=== PATIENT | female | born 1930 | race Caucasian/White ===

== ENCOUNTER 2019-05-05 12:12 | Inpatient (IN) ==
--- NOTE | 2019-05-05 09:39 | Anesthesia Evaluation PreOp ---
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: Other (anxiety depression) Other Medical History: Renal (bladder cancer), GERD Anesthesia History: No Prior Anesthetic Complications, Past Anesthesia (TURBT, back sx x2) Alcohol Use: none Drug use: none Medications and Allergies ALPRAZolam [Xanax 0.5 MG Tablet] 0.5 mg PO BID 07/07/18 [History] Acetaminophen [Tylenol] 500 mg PO Q6HR PRN 07/07/18 [History] Apixaban [Eliquis] 2.5 mg PO BID 07/07/18 [History] Ascorbic Acid [Vitamin C] 1,000 mg PO DAILY 07/07/18 [History] Aspirin [Lo-Dose Aspirin EC] 81 mg PO DAILY 07/07/18 [History] Atorvastatin [Lipitor] 40 mg PO HS 07/07/18 [History] Benzocaine [Vencedor-15] 1 lozenge PO Q6H PRN 07/07/18 [History] Bisoprolol Fumarate 5 mg PO QAM 07/07/18 [History] Cholecalciferol (Vitamin D3) [Dialyvite Vitamin D] 5,000 unit PO DAILY 07/07/18 [History] Citalopram Hydrobromide [Citalopram HBr] 20 mg PO BID 07/07/18 [History] Clopidogrel Bisulfate [Plavix] 75 mg PO DAILY 07/07/18 [History] Diltiazem HCl [Diltiazem 24Hr Cd] 120 mg PO QAM 07/07/18 [History] Docusate [Colace] 100 mg PO QAM 07/07/18 [History] Fexofenadine HCl [Allergy Relief] 180 mg PO Q48H 07/07/18 [History] Furosemide [Lasix] 40 mg PO QAM 07/07/18 [History] Lactobacillus [Culturelle] 1 each PO DAILY 07/07/18 [History] Losartan Potassium [Cozaar] 50 mg PO DAILY 07/07/18 [History] Meloxicam [Mobic] 7.5 mg PO DAILY 07/07/18 [History] Omeprazole [PriLOSEC] 20 mg PO BIDAC 07/07/18 [History] OxyCODONE ER (12 HR) [OxyCONTIN] 5 mg PO Q12HR 07/07/18 [History] Primidone [Mysoline] 50 mg PO HS 07/07/18 [History] Docusate [Colace] 200 mg PO HS 07/08/18 [History] Potassium Chloride [K-Tab ER] 10 meq PO BID #60 tablet.er 07/12/18 [Rx] Allergy/AdvReac Type Severity Reaction Status Date / Time Diclofenac [From Arthrotec] Allergy Unknown See Verified 07/07/18 19:21 Comments misoprostol [From Arthrotec] Allergy Unknown See Verified 07/07/18 19:21 Comments - Meds/Allergy Pre-op Review Medications Reviewed: Yes Allergies Reviewed: Yes Beta Blockers on Current Med List: Yes If Beta Blockers taken, Date/Time (Last Dose taken): today 0700 Anesthesia Results - Labs Laboratory Tests 04/28/19 04/28/19 14:18 14:18 Hgb 11.8 Hct 37.1 Plt Count 204 Sodium 137 Potassium 5.0 BUN 27 H Creatinine 1.12 - Imaging Additional studies: stress test: ndications: Pre-operative, Coronary Artery Disease, CHF Impression: No ischemia or infarct on perfusion study. Dilated LV, stress LVEF 49%. Pharmacologic stress ECG non-diagnostic for ischemia. History: Hypertension Stress Test Summary: Stress Test Type: Pharmacologic Regadenoson 0.4mg/5ml given IV Baseline Information: Initial Heart Rate: 67 Blood Pressure: 138/60 Stress Information: Stress Time: 4 min 00 sec Test Terminated Due to (primary): Completed Protocol Maximum Blood Pressure: 130/80 Maximum Heart Rate: 87 Percent Maximum Heart Rate Achieved: 66 Double Product: 11,310 METS Reached: 1 Symptoms: Lightheadness Nuclear Summary: SPECT myocardial perfusion imaging using Tc99m Sestamibi given intravenously was performed at rest and following cardiac stress testing. The resting images were obtained following initial dose of 10.3 mCi. Following stress an additional dose of 34.2 mCi was given at peak exercise or 30 seconds post regadenoson infusion. Findings: Stress Note * Resting ECG demonstrated normal sinus rhythm. * No baseline arrhythmias were noted. * Pharmacologic stress ECG is non diagnostic for ischemia due to failure to reach target heartrate. * Occasional PACs noted during stress. * Patient had no chest pain during stress. * Dizziness. Hemodynamic responses * Normal hemodynamic responses to pharmacologic stress. Study Quality * Study quality is average. Gated EF % * Gated EF = 49%. Left Ventricle * The left ventricle is dilated. * LVEDV = 167 mL. Global Hypokinesis in Stress. * Global Hypokinesis in Stress. NORMALS * Normal segmental perfusion in stress. * Normal Segmental Perfusion in rest. * Apical thinning artifact present. TID * No evidence of transient ischemic dilatation. TID ratio * TID ratio = 1.2. IMPRESSION: Detail at the bifurcations and proximal internal/external carotid arteries is limited due to a large amount of calcification and subsequent artifact. However, there is suggested severe narrowing at the origin of the left internal carotid artery. There is also suggested 50-60% short-segment narrowing of the right proximal internal carotid artery. CT angiogram: echo 2018: Impressions: LVEF 40-45%. Mild concentric left ventricular hypertrophy. Mild segmental left ventricular systolic dysfunction. Normal right ventricular structure and function. Mild mitral regurgitation. Pleural effusion noted. Limited study. Valves not completely assessed. 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
--- NOTE | 2019-05-05 12:32 | History & Physical Report ---
Date of Encounter: 05/05/19 Time of Encounter: 12:25 24 Hour HP Update - Instructions Instructions: If the History and Physical is less than 30 days old and was completed prior to A.M. admission and or procedure and has NOT been updated on calendar day of procedure please complete this update prior to performing procedure. - Update Patient reports changes in Medical Condition: No Changes in examination, assessment, or condition: No Changes in Medication: No Preop tests/diagnostics Reviewed: Yes Surgery Remains Indicated: Yes Consent for Planned Operative Procedure(s) Verified: Yes - Pre-Operative Checklist Preoperative Checklist Indicated: Yes Prophylactic Antibiotic Ordered: Yes (Vancomycin due to MRSA risk) Home Medications Include Beta Silvino: No Beta Silvino Taken Today (Day of Surgery): No Beta Silvino Taken Yesterday (Day Prior to Surgery): No Is VTE Prophylaxis Indicated?: Yes
[2019-05-05] MEDS ORDERED: CeFAZolin Syr 2,000MG/20 ML 2,000 MG/20 ML SYRINGE IVPB ONE (12:41)
[2019-05-05] MEDS ORDERED: Albuterol 2.5 MG/3 ML NEBULIZER IH ONE (12:41)
[2019-05-05] MEDS ORDERED: Ringers Solution, Lactated 1,000 ML IVC SCH ×2 (12:45→13:15)
[2019-05-05] MEDS ORDERED: Lidocaine HCL 4 ML Topical Solution (Laryng-O-Jet Kit Sterile Pak) TP ONE (12:48)
[2019-05-05] MEDS ORDERED: *HR* FentaNYL (PF) 100 MCG/2 ML VIAL ONE (12:49)
[2019-05-05] MEDS ORDERED: Lidocaine -MPF 2% 2 ML VIAL ONE ×3 (12:50→13:59)
[2019-05-05] MEDS ORDERED: *HR* Rocuronium Bromide 50 MG/5 ML VIAL ONE (12:50)
[2019-05-05] MEDS ORDERED: *HR* Propofol 200 MG/20 ML VIAL IVP ONE (12:51)
[2019-05-05] MEDS ORDERED: *HR* Phenylephrine 10 MG/ML VIAL ONE (12:54)
[2019-05-05] MEDS ORDERED: traMADol 50 MG TABLET PO PRN (13:10)
[2019-05-05] MEDS ORDERED: *HR* Promethazine 25 MG/ML VIAL IVP PRN ×2 (13:10→17:55)
[2019-05-05] MEDS ORDERED: *HR* OxyCODONE Immed Rel 5 MG TABLET PO PRN ×2 (13:10→17:55)
[2019-05-05] MEDS ORDERED: Vancomycin 1,000 MG, Sodium Chloride IRRigation 1,000 ML IR ONE (13:20)
[2019-05-05] MEDS ORDERED: Heparin 1,000 UNITS/500 mL 500 ML ONE (13:26)
[2019-05-05] MEDS ORDERED: Protamine Sulfate 50 MG/5 ML VIAL IVP ONE (13:26)
[2019-05-05] MEDS ORDERED: Bupivacaine-MPF 0.25% 10 ML VIAL ONE (13:26)
[2019-05-05] MEDS ORDERED: Acetaminophen IV 1,000 MG/100 ML INFUS..BTL ONE (13:48)
[2019-05-05] MEDS ORDERED: *HR* Remifentanil 1 MG VIAL IVP ONE (14:09)
[2019-05-05] MEDS ORDERED: Ondansetron 4 MG/2 ML VIAL ONE (14:12)
[2019-05-05] MEDS ORDERED: Dexamethasone 4 MG/ML VIAL ONE (14:12)
[2019-05-05] MEDS ORDERED: *HR* Heparin 5,000 UNIT/ML VIAL ONE (14:47)
--- NOTE | 2019-05-05 15:29 | Anesthesia Procedures ---
Date of Encounter: 05/05/19 Time of Encounter: 14:30 Procedures: Anesthesia - Arterial Line Consent obtained: written consent Time out performed: Yes Sedation: Fentanyl (mcg): 50 Supplemental Oxygen via Nasal Cannula (L/min): 2 Local Anesthetic: Other (lidocaine 2%) Amount of Anesthetic used (mls): 1 Size (Gauge): 20 Length (inches): 1 3/4 Technique Used: sterile prep, guide wire technique, direct puncture technique Post-Procedure: line taped into place, dry sterile dressing placed Patient tolerated procedure: well, no complications Complications: none Site: Radial L Vitals: Vital Signs/O2 Sat/Glucose, Most Recent Temp Pulse Resp BP Pulse Ox 98.4 F 66 18 154/77 99 05/05/19 12:33 05/05/19 13:30 05/05/19 12:33 05/05/19 13:30 05/05/19 13:30
[2019-05-05] MEDS: *HR* HYDROmorphone (PF) 1 MG/ML SYRINGE IVP PRN ×2 (16:57→17:07)
--- NOTE | 2019-05-05 17:00 | Operative Note ---
Date of procedure: 05/05/19 Pre-op diagnosis: 80-99% left internal carotid artery stenosis Post-op diagnosis: same Procedure: Left carotid endarterectomy with Hemashield patch angioplasty. Complications: None Anesthesia: SREEA Surgeon: Truman Rios Was there an visitor service assistant present: No Estimated blood loss (cc): 50 Specimen: Left carotid plaque Condition: stable Disposition: same day Procedure in Detail: Indications: The patient is a 89-year-old female with a presented with a history of hypertension, chronic systolic congestive heart failure, coronary artery disease and essential hypertension. Patient was found have an 80-99% left internal carotid artery stenosis. A left carotid endarterectomy was recommended to reduce her risk of cerebrovascular accident. Procedure: The patient was identified in the preoperative area. The risks, benefits, and alternatives of the procedure were discussed and all questions were answered. She was then taken to the operating room and placed in supine position on the operating table. After the induction of general endotracheal anesthesia, she was cleaned and draped in normal sterile fashion. A longitudinal incision was made anterior to the left sternocleidomastoid muscle. Hemostasis was obtained via electrocautery. Through a process of blunt, sharp, and electrocautery dissection, the platysma was traversed and the jugular vein was identified. The facial vein was dissected, clamped, divided and ligated with a 2-0 silk suture ligature. The jugular vein was retracted to expose the carotid bifurcation. The patient received 3000 units of heparin intravenously at this time. Proximal dissection of the common and external carotid arteries were performed circumferentially. Dissection of the internal carotid was performed circumferentially. Vessels loops were passed around the internal and external carotid and an umbilical tape was passed from the common carotid artery. The patient received an additional 2000 units of heparin intravenously. After waiting adequate time for the heparin to circulate, the vessels were occluded and a longitudinal arteriotomy was made into the common carotid artery and extended into the internal carotid beyond the plaque. The plaque was long, extended distally and was heavily calcified. Vigorous pulsatile retrograde flow was noted from the internal carotid artery upon release of the vessel loop. Due to the rapid pulsatile retrograde flow, no shunt was placed. A dental [place] was then used to perform a standard endarterectomy. Proximal and distal endpoints were inspected. No elevated flaps were noted. A Hemashield patch was cut to fit the defect and sutured in place with running 6-0 Prolene. Prior to completing the closure, each vessel was flushed and then reoccluded. Heparinized saline was infused into the lumen. The patch was completed. Flow was restored in the external carotid artery, followed the common carotid artery, lastly the internal carotid artery was opened. A low resistance arterialized signal was present within the internal carotid artery beyond the patch. Thrombin and Gelfoam were used to aid in hemostasis. Meticulous hemostasis was obtained throughout the wound with electrocautery. Platelet rich and platelet poor plasma were infused into the wounds. The sternocleidomastoid was reapproximated with interrupted 3-0 Vicryl. Platelet rich and platelet poor plasma were infused into the wound. A TLS drain was brought through a separate stab incision and sutured in place with 0 silk suture. The platysma was reapproximated with running 3-0 Vicryl. Local anesthetic was infused in the skin. A 3-0 Monocryl was used to reapproximate the skin. A sterile dressing was applied. The patient was extubated, taken to the recovery room in stable condition.
[2019-05-05] MEDS ORDERED: 0.9 % Sodium Chloride 1,000 ML IVC SCH (17:55)
[2019-05-05] MEDS ORDERED: Naloxone 0.4 MG/ML INJ IVP PRN (17:55)
[2019-05-05] MEDS ORDERED: Acetaminophen 325 MG TABLET PO PRN (17:55)
[2019-05-05] MEDS ORDERED: *HR* Labetalol 20 MG/4 ML SYRINGE IVP PRN (17:55)
[2019-05-05] MEDS ORDERED: Loratadine 10 MG TABLET PO SCH (18:00)
--- NOTE | 2019-05-05 18:07 | Anesthesia Evaluation Post Op ---
Date of Encounter: 05/05/19 Time of Encounter: 18:00 - Vital Signs Vital Signs: Vital Signs/O2 Sat/Glucose, Most Current Temp Pulse Resp BP Pulse Ox 05/05/19 17:30 99.2 F 72 14 141/63 97 05/05/19 17:20 99.2 F 75 14 150/70 96 05/05/19 17:10 82 14 146/76 97 05/05/19 17:00 79 14 151/72 97 05/05/19 16:50 99.0 F 79 16 153/81 100 - Lungs Lungs: Clear Ascult./Percussion - Airway Airway: Non-obstructed - Cardiovascular Regular Rate - Mental Status Mental Status: Alert & Oriented, Answers Appropriately - Pain Pain Scale: 0 - Nausea Vomiting Nausea Vomiting: Not Present - Hydration Hydration: Ice chips - Discharge PostOp Status: Transfer Patient to floor
[2019-05-05] MEDS: *HR* Metoprolol 5 MG/5 ML VIAL IVP SCH (19:25)
[2019-05-05] MEDS: ALPRAZolam 1 MG TABLET PO SCH (20:43)
[2019-05-05] MEDS ORDERED: Melatonin 3 MG TABLET PO SCH (21:00)
[2019-05-05] MEDS ORDERED: Primidone 50 MG TABLET PO SCH (21:00)
[2019-05-06] MEDS: *HR* Metoprolol 5 MG/5 ML VIAL IVP SCH ×2 (00:22→05:41)
[2019-05-06] MEDS: *HR* HYDROcodone/Acet 5/325 mg TABLET PO PRN ×2 (02:39→08:39)
[2019-05-06 03:48] VITALS: BP 148/64
--- NOTE | 2019-05-06 05:42 | Discharge Summary ---
Orders not resulted at time of discharge: Pending orders 05/05/19 16:18 Surgical Pathology [PTH] Routine Date of Encounter: 05/06/19 Time of Encounter: 07:10 - Discharge Diagnosis (1) Carotid stenosis, left Priority: Primary Status: Acute Comments: The patient is postoperative day #1 after a left carotid endarterectomy. Her incision is healing. She has no neurologic deficits. She is tolerating a diet. She will be discharged today. (2) CAD (coronary artery disease) Priority: Secondary Status: Chronic Qualifiers: Coronary Disease-Associated Artery/Lesion type: [place] artery [place] vs. transplanted heart: [place] heart Associated angina: without angina Qualified Code(s): I25.10 - Atherosclerotic heart disease of [place] coronary artery without angina pectoris (3) Hypertension Priority: Secondary Status: Chronic Qualifiers: Hypertension type: essential hypertension Qualified Code(s): I10 - Essential (primary) hypertension (4) HLD (hyperlipidemia) Priority: Secondary Status: Chronic Qualifiers: Hyperlipidemia type: mixed hyperlipidemia Qualified Code(s): E78.2 - Mixed hyperlipidemia (5) Chronic kidney disease, stage III (moderate) Priority: Secondary Status: Chronic - Hospital Course Hospital course: Ms. Lee is a 89 year old female with a history of coronary artery disease, hypertension, chronic kidney disease stage III, chronic systolic congestive heart failure and carotid stenosis. The patient was found have an 8079% left internal carotid stenosis. She takes the operative she underwent a left carotid endarterectomy. She tolerated the procedure well. On postoperative day #1 she was alert without neurologic deficits. She is able to tolerate a diet and was able to ambulate. Her pain was well-controlled. She was discharged on postoperative day #1 without complications. - Time Spent with Patient Total time spent providing and/or coordinating discharge services: - Discharge Medications Prescriptions: Continued Lactobacillus [Culturelle] 1 each PO DAILY Cholecalciferol (Vitamin D3) [Dialyvite Vitamin D] 5,000 unit PO DAILY Ascorbic Acid [Vitamin C] 1,000 mg PO DAILY Docusate [Colace] 100 mg PO QAM Losartan Potassium [Cozaar] 50 mg PO HS Omeprazole [PriLOSEC] 20 mg PO BIDAC Primidone [Mysoline] 50 mg PO HS Fexofenadine HCl [Allergy Relief] 180 mg PO Q48H Clopidogrel Bisulfate [Plavix] 75 mg PO QPM Citalopram Hydrobromide [Citalopram HBr] 20 mg PO DAILY Bisoprolol Fumarate 5 mg PO QAM Docusate [Colace] 200 mg PO HS Potassium Chloride [K-Tab ER] 10 meq PO BID #60 tablet.er ALPRAZolam [Xanax 1 MG Tablet] 1 mg PO BID Bumetanide [Bumex] 1 mg PO DAILY dilTIAZem HCl [Diltiazem 24Hr ER] 120 mg PO QAM Melatonin 3 mg PO HS Multivitamin [Daily Multiple Vitamin] 1 tab PO DAILY OxyCODONE Immed Rel [Roxicodone 10 MG] 10 mg PO BID Sulfamethoxazole/Trimeth DS [Bactrim Ds] 1 tab PO MOWEFR Home Medications: Ascorbic Acid [Vitamin C] 1,000 mg PO DAILY 07/07/18 [History] Bisoprolol Fumarate 5 mg PO QAM 07/07/18 [History] Cholecalciferol (Vitamin D3) [Dialyvite Vitamin D] 5,000 unit PO DAILY 07/07/18 [History] Citalopram Hydrobromide [Citalopram HBr] 20 mg PO DAILY 07/07/18 [History] Clopidogrel Bisulfate [Plavix] 75 mg PO QPM 07/07/18 [History] Docusate [Colace] 100 mg PO QAM 07/07/18 [History] Fexofenadine HCl [Allergy Relief] 180 mg PO Q48H 07/07/18 [History] Lactobacillus [Culturelle] 1 each PO DAILY 07/07/18 [History] Losartan Potassium [Cozaar] 50 mg PO HS 07/07/18 [History] Omeprazole [PriLOSEC] 20 mg PO BIDAC 07/07/18 [History] Primidone [Mysoline] 50 mg PO HS 07/07/18 [History] Docusate [Colace] 200 mg PO HS 07/08/18 [History] Potassium Chloride [K-Tab ER] 10 meq PO BID #60 tablet.er 07/12/18 [Rx] ALPRAZolam [Xanax 1 MG Tablet] 1 mg PO BID 05/05/19 [History] Bumetanide [Bumex] 1 mg PO DAILY 05/05/19 [History] Melatonin 3 mg PO HS 05/05/19 [History] Multivitamin [Daily Multiple Vitamin] 1 tab PO DAILY 05/05/19 [History] OxyCODONE Immed Rel [Roxicodone 10 MG] 10 mg PO BID 05/05/19 [History] Sulfamethoxazole/Trimeth DS [Bactrim Ds] 1 tab PO MOWEFR 05/05/19 [History] dilTIAZem HCl [Diltiazem 24Hr ER] 120 mg PO QAM 05/05/19 [History] Allergies/Adverse Reactions: Allergy/AdvReac Type Severity Reaction Status Date / Time Diclofenac [From Arthrotec] Allergy Unknown Hives Verified 05/05/19 14:08 misoprostol [From Arthrotec] Allergy Unknown Hives Verified 05/05/19 14:08 Date of admission: 05/05/19 18:05 Primary care physician: Esha Hodges CNP Procedure(s) Performed: Left carotid endarterectomy Discharging clinician: Truman Rios Anticipated date of discharge: 05/06/19 Exam Vital Signs, Last 4 Hours Temp Pulse Resp BP Pulse Ox 05/06/19 03:43 97.6 F 61 14 148/64 98 General: Present: Conversant HEENT: Present: Pupils equal Neck: Present: Other (Incision clean, dry and intact without erythema, drainage or hematoma) Cardiac: Present: Normal S1 and S2 Lungs: Present: Normal Breath Sounds Neuro: Present: Alert and responsive, No focal deficits noted Abdomen: Present: Soft Vascular: Present: Normal capillary refill. Absent: Cyanosis, Edema Skin: Present: No rashes noted on visualized skin - Patient Status Disposition: Home, Self-Care Condition: Good Functional capacity at discharge: independent ambulation Overall status at discharge: patient is back to baseline - Discharge Instructions Instructions: Carotid Endarterectomy (DC) Follow Up With: Esha Hodges CNP [Primary Care Provider] - 05/10/19 10:30 am Truman Rios MD [Partnered Physician] - 05/31/19 3:00 pm Additional Instructions: May remove bandage and shower on 05/07/2019. Wash wounds gently and pat to dry. No swimming until 06/06/2019. Call Dr. Rios [phone] with questions or concerns. - Diet and Activity Activity: increase activity as tolerated Diet: advance to your usual diet
[2019-05-06] MEDS ORDERED: *HR* Heparin 5,000 UNIT/ML VIAL SQ SCH ×2 (06:00)
[2019-05-06] MEDS: ALPRAZolam 1 MG TABLET PO SCH (08:32)
[2019-05-06] MEDS ORDERED: Lactobacillus 1 EACH CAP.SPRINK PO SCH (09:00)
[2019-05-06] MEDS ORDERED: Multivit/Ca/Min/Fe/FA 1 TAB TABLET PO SCH (09:00)
[2019-05-06] MEDS ORDERED: Cholecalciferol (D-3) 1,000 UNIT (25MCG) TABLET PO SCH (09:00)
[2019-05-06] MEDS ORDERED: Ascorbic Acid 500 MG TABLET PO SCH (09:00)
[2019-05-06] MEDS ORDERED: Diltiazem CD (24hr) 120 MG CAPSULE PO SCH (09:00)
[2019-05-06] MEDS ORDERED: BISOPROLOL FUMARATE 5 MG PO SCH (09:00)
[2019-05-06] MEDS ORDERED: Bumetanide 1 MG TABLET PO SCH (09:00)
== END 2019-05-06 11:11 | disposition home or self-care (01) | DRG 38 ==
LOC: SAMDAY 12:12 → 2NNU 18:05
PROVIDERS: ADMIT Surgery; ATTEND Surgery